=== PATIENT | female | born 1975 | race Caucasian/White ===

== ENCOUNTER 2020-06-30 08:44 | Emergency (ER) | payer SELFPAY ==
[~2020-06-30] VITALS: Ht 156.2 cm; Wt 61.7 kg
[2020-06-30 08:49] VITALS: BP 119/64
[2020-06-30] MEDS ORDERED: KETOROLAC 30 MG/ML VIAL IM ONE (09:15)
[2020-06-30] MEDS ORDERED: KETOROLAC 15 MG/ML VIAL ONE (09:28)
[2020-06-30 09:38] LABS: BASOPHILS % (AUTO) 0.5 % (0.0-2.0); EOSINOPHILS # (AUTO) 0.3 K/uL (0-0.4); EOSINOPHILS % (AUTO) 4.4 % (0.0-4.0); HEMATOCRIT 38.9 % (36-48); HEMOGLOBIN 13.1 g/dL (12.0-16.0); LYMPHOCYTES # (AUTO) 2.1 K/uL (2.5-16.5); LYMPHOCYTES % (AUTO) 30.7 % (20.5-51.1); MEAN CORPUSCULAR HEMOGLOBIN 31 pg (27-31); MEAN CORPUSCULAR HGB CONC 34 g/dL (33-37); MEAN CORPUSCULAR VOLUME 92.3 fL (80-94); MONOCYTES # (AUTO) 0.7 K/uL (0.8-1.0); MONOCYTES % (AUTO) 9.7 % (1.7-9.3); NEUTROPHILS # (AUTO) 3.7 K/uL (1.8-7.7); NEUTROPHILS % (AUTO) 54.7 % (42.2-75.2); PLATELET COUNT (AUTO) 228 K/uL (140-450); RED BLOOD CELL COUNT(AUTO) 4.22 MIL/uL (4.20-5.40); RED CELL DISTRIBUTION WIDTH 13.9 % (11.6-13.7); WHITE BLOOD COUNT (AUTO) 6.7 K/uL (4.8-10.8)
[2020-06-30 09:54] LABS: ALBUMIN 3.3 g/dL (3.4-5.0); ANION GAP 12.4 (8-16); CARBON DIOXIDE 25.7 mmol/L (21-32); CREATININE 0.7 mg/dL (0.6-1.3); POTASSIUM 4.1 mmol/L (3.5-5.1); TOTAL BILIRUBIN 0.8 mg/dL (0.0-1.0)
[2020-06-30 12:16] LABS: APPEARANCE,URINE CLOUDY (CLEAR); BILIRUBIN,URINE NEGATIVE (NEGATIVE); BLOOD, URINE NEGATIVE (NEGATIVE); COLOR,URINE OTHER (YELLOW); LEUKOCYTE ESTERASE ,URINE NEGATIVE (NEGATIVE); NITRITE, URINE NEGATIVE (NEGATIVE); UGLUCOSE NEGATIVE (NEGATIVE)
[2020-06-30 12:27] LABS: CALCIUM OXALATE CRYSTALS,UR 0-10 /HPF (None Seen); RBC,URINE 0-5 /HPF (0-5); WBC,URINE 0-5 /HPF (0-5)
[2020-06-30 12:28] LABS: URINE AMORPHOUS URATE 3+ /HPF (None Seen)
[2020-06-30 13:03] VITALS: BP 118/64
== END 2020-06-30 13:03 | disposition home or self-care (01) ==
LOC: MED 08:44
DX: R10.9 Unspecified abdominal pain (principal); E11.9 Type 2 diabetes mellitus without complications; E78.41 Elevated Lipoprotein(a)
CPT/HCPCS: 36415; 74176; 80053; 81001; 81025; 83690; 84702; 85025; 96372; 99284; J1885